=== PATIENT | female | born 1950 | race Caucasian/White ===

== ENCOUNTER 2021-03-03 12:00 | Day surgery (SDC) | payer OTHER ==
[2021-02-27 11:05] LABS: Absolute Lymphocytes (CBC) 2.1 K/uL (0.7-4.9); Hematocrit 40.8 % (36.0-45.0); Lymphocytes % 21.3 % (15.3-44.8); MPV 6.7 fL (7.6-11.3); RBC Red Blood Cell Count 5.17 M/uL (3.86-4.86)
--- NOTE | 2021-02-27 11:24 | RAD REPORT ---
EXAM DESCRIPTION: RAD - Chest Pa And Lat (2 Views) - 02/27/2021 10:38 am CLINICAL HISTORY: pre op Chest pain. COMPARISON: Chest Pa And Lat (2 Views) dated 07/03/2015; CHEST SINGLE VIEW dated 07/05/2012; CHEST PA AND LAT 2 VIEW dated 12/10/2003 FINDINGS: The lungs are clear. The heart is mildly prominent in size. No displaced fractures.
[2021-02-27 20:45] LABS: Potassium 4.5 mmol/L (3.5-5.1)
[~2021-03-03 12:00] MED LIST: HEPA 1000U/500MLS 1,000 UNIT/500 ML BAG IV ONE; NA CHLORIDE 0.9% 500 ML ONE
[2021-03-03 12:04] LABS: Protime INR 1.03
[2021-03-03 12:06] VITALS: TEMP 97
[2021-03-03] MEDS ORDERED: HEPA 1000U/500MLS 1,000 UNIT/500 ML BAG IV ONE (12:58)
[2021-03-03] MEDS ORDERED: LIDOCAINE 1% 20 ML MDV ONE (13:06)
[2021-03-03] MEDS ORDERED: FENTANYL CITR 100 MCG/2 ML ONE (13:06)
[2021-03-03] MEDS ORDERED: MIDAZOLAM HCL 2 MG/2 ML INJ ONE (13:06)
[2021-03-03] MEDS ORDERED: ATROPINE SULF 1 MG/10 ML SYR IV ONE (13:08)
[2021-03-03] MEDS ORDERED: NITROGLYCERIN/D5W 25 MG/250 ML BTL IV ONE (13:08)
[2021-03-03] MEDS ORDERED: VERAPAMIL HCL 10 MG/4 ML VIAL IV ONE (13:08)
[2021-03-03] MEDS ORDERED: NITROGLYCERIN 100 MCG/ML SYR (for cath lab use only) IV ONE (13:08)
[2021-03-03] MEDS ORDERED: HEPARIN 5000 UNIT/ML 1 ML VIAL ONE (13:13)
--- NOTE | 2021-03-03 14:42 | OP ---
Date of Procedure: 03/03/2021 Surgeon: ALLISON UMAÑA Procedure Performed: Selective coronary angiogram. Access: Right radial artery 6-Chinese closed with TR band. Complications: None. Bleeding: Less than 10 mL. Description Of Procedure: After risks, benefits, and alternatives were explained, the patient agreed to procedure and signed informed consent. The patient was brought into the cardiac catheterization laboratory, prepped and draped in usual sterile fashion. Then, we accessed right radial artery using pediatric micropuncture kit, placed 6-Chinese Slender sheath, and then took a 5-Chinese Blachly 4.0 cath eter into the aortic root, engaged the right coronary artery and left main, and took standard views a nd removed catheter and sheath and placed TR band with good hemostasis. Fentanyl and Versed were giv en in incremental doses to achieve adequate moderate sedation. Total sedation time was 25 minutes. Findings: 1.Left main; long with diffuse 30% stenosis. 2.LAD; large vessel with proximal diffuse 10% to 20% stenosis and in the midportion across the takeo ff of the diagonal 2 branch is a heavily calcified long 90% lesion. The LAD is free of disease. LAD gives large collaterals to the distal RCA filling the PDA and the PLV. 3.Left circumflex has diffuse 20% to 30% stenosis throughout. 4.EXCHANGE MECHANIC proximally totally occluded stent and gets collaterals from the left as above. Conclusion: Severe coronary artery disease of the LAD, heavily calcified with EXCHANGE MECHANIC of RCA and collate rals from the LAD to RCA. Plan: PCI with atherectomy of the mid LAD stenosis. SR/MODL Voice ID: [id number] Report ID: [id number]
[2021-03-03 15:29] VITALS: O2SAT 97
[2021-03-03 16:22] VITALS: BP 135/71
== END 2021-03-03 15:05 | disposition home or self-care (01) ==
LOC: CCL 12:00
PROVIDERS: ATTEND Internal Medicine
DX: I25.10 Atherosclerotic heart disease of native coronary artery without angina pectoris (principal); I25.82 Chronic total occlusion of coronary artery; I10 Essential (primary) hypertension; E78.5 Hyperlipidemia, unspecified; Z87.891 Personal history of nicotine dependence; Z01.810 Encounter for preprocedural cardiovascular examination; Z20.822 Contact with and (suspected) exposure to COVID-19
CPT/HCPCS: 93005; 85025; 80048; 36415; 85610; 85730; 71046; 93454; U0003; C1893; J1644 ×3; J2250; J3010; J7040